=== PATIENT | male | born 1945 | race Caucasian/White ===

== ENCOUNTER 2022-09-14 14:13 | Emergency (ER) | payer SELFPAY ==
[~2022-09-14] VITALS: Ht 167.6 cm; Wt 104.5 kg
[2022-09-14 14:14] VITALS: BP 159/89
[2022-09-14] MEDS ORDERED: DILT240C83 (14:25)
[2022-09-14] MEDS ORDERED: LATANOPROST (14:25)
[2022-09-14] MEDS ORDERED: BRIM0.2S13 (14:25)
[2022-09-14] MEDS ORDERED: IPRA0.00 (14:25)
[2022-09-14] MEDS ORDERED: METO1TAB7 (14:25)
[2022-09-14] MEDS ORDERED: CLOP75TA2 (14:25)
== END 2022-09-14 14:42 | disposition left against medical advice (07) ==
LOC: M ED 14:13
DX: Z53.21 Procedure and treatment not carried out due to patient leaving prior to being seen by health care provider (principal)